=== PATIENT | male | born 1955 | race Caucasian/White ===

== ENCOUNTER 2019-02-17 18:59 | Emergency (ER) | payer OTHER ==
[2019-02-17] MEDS ORDERED: FLUORESCEIN SOD 1 MG 1 EA STRP OU ONE (19:15)
[2019-02-17] MEDS ORDERED: PROPARACAINE 0.5% OP 15ML BTL OU ONE (19:15)
--- NOTE | 2019-02-17 19:15 | ER Report ---
History and Physical Time Seen By MD: 19:15 Hx. of Stated Complaint: patient recently just flow in [address] to his [place] here in [place], patient states as he was going around openeing up house yesterday afternoon, patient developed a black object in right eye, patient thought he got something in eye, but flushed out eye and object didn't go away, woke up this morning and it was worse, stating it is like he has a "spider web in eye". HPI/ROS CHIEF COMPLAINT: Visual disturbance HISTORY OF PRESENT ILLNESS: This is a 63-year-old male. Came to the ER tonight because he started having a visual disturbance in his right eye. He describes what looked like a spiderweb in the lateral aspect of his right eye. He thought he might have got something in his eye but had no irritation or pain associated with this. He had this happen yesterday afternoon, seemed to go away, and then came back again today. He tried flushing out his eyes but this did not go away. He denies having any flashing lights in his vision. No prior history of visual difficulties other than needing to use "cheater's" as he has been getting older. No other medical history. No history of migraine headaches and no headache at this time. He does not take any medications. He just flew in from his home in [place], came here to the clean up his summer home here and [place]. Was looking online and was worried about the possibility of a retinal detachment. Allergies: Coded Allergies: No Known Drug Allergies (Unverified , 02/17/19) Home Meds No Active Prescriptions or Reported Meds Reviewed Nurses Notes: Yes Constitutional Vital Sign - Last 24 Hours 02/17/19 02/17/19 19:05 20:40 Temp 98.2 Pulse 67 65 Resp 16 16 B/P (MAP) 164/99 134/87 (103) Pulse Ox 96 93 O2 Delivery Room Air Physical Exam General Appearance: Alert, no distress. Used Proparacaine 0.5% drops to numb both eyes Slit lamp exam was performed, normal lids and margins, normal conjunctiva. Normal anterior chamber. Iris appears normal. I do not see a significant debris or bleeding in the vitreous. Eyes: Pupils equal, round and reactive to light. No pallor. No scleral icterus. No injection. There is no discharge. Examination, including under the upper lid, reveals no foreign body. Fluorescein exam reveals no uptake. Funduscopic exam was done with nondilated eyes, I see a normal cup to disc ratio in both eyes, I do not see any evidence of a retinal detachment, vessels on this limited exam looked normal in both eyes. Visual acuity was 20/50 in the left eye and 20/40 in the right eye. Ocular pressures measured, left eye 15, right eye 17 Skin: Periorbital skin is not inflamed. Initial blood pressure is quite elevated, repeat blood pressure was significa ntly improved. DIFFERENTIAL DIAGNOSIS: After history and physical exam differential diagnosis was considered for visual disturbance, concerning for new floater, vitreous hemorrhage, vitreous detachment, retinal detachment. Medical Decision Making ED Course/Re-evaluation ED Course Discussed these results with the patient. Explained that my exam here in the ER is limited but is reassuring at this point that we are not seeing a retinal detachment. This still could be a vitreous detachment or other problem and I did recommend that he get a complete eye exam done by a [employer] tomorrow. I called and spoke with Dr. Peck at [facility], and they will get him into the office tomorrow for further evaluation and referral onto specialty treatment if needed. I also discussed the patient's initial elevated blood pressure with him. I think this is mostly due to the stress and anxiety the situation but he should monitor this and talk to his regular doctor if this does remain elevated. Decision to Disposition Date: Feb 17, 2019 Decision to Disposition Time: 20:06 Depart Departure Latest Vital Signs Vital Signs Date Time Temp Pulse Resp B/P (MAP) Pulse Ox O2 Delivery O2 Flow Rate FiO2 02/17/19 20:40 65 16 134/87 (103) 93 Room Air 02/17/19 19:05 98.2 Impression: Primary Impression: Visual disturbance Condition: Improved Disposition: HOME OR SELF-CARE New Scripts No Active Prescriptions or Reported Meds Patient Instructions: Visual Floaters (ED) Additional Instructions: On your limited eye exam tonight, we did not detect any problems. Your visual effects noted tonight might be due to new floaters in the vitreous or a vitreous detachment, the liquid in the center of the eye. The effects could be due to an ocular migraine. We would recommend a follow-up exam with an 4 h youth development specialist. I have called and spoken with Dr. Peck at [facility]. They will be able to see you tomorrow, Dr. Ann or Dr. Hernandez. Call then in the morning. They open at 8am. Their number is . Your blood pressures were elevated tonight, and we recommend monitoring this. If it remains elevated over time, starting a new blood pressure medicine will be needed. ELLA BROWN MD Feb 17, 2019 19:15
[2019-02-17 20:40] VITALS: BP 134/87
== END 2019-02-17 20:42 | disposition home or self-care (01) ==
LOC: ER 19:22
DX: H53.9 Unspecified visual disturbance (principal)
CPT/HCPCS: 99283